=== PATIENT | male | born 1965 | race African-American/Black ===

== ENCOUNTER 2020-02-04 19:49 | Emergency (ER) | payer MEDICAID ==
[~2020-02-04] VITALS: Ht 190.5 cm; Wt 99.8 kg
[2020-02-04 19:53] VITALS: BP 153/87
--- NOTE | 2020-02-04 20:00 | NUR ---
To ED bed 06
--- NOTE | 2020-02-04 20:01 | NUR ---
54 YO M BIB SELF FOR C/C OF MIDSTERNAL CHEST PAIN THAT BEGAN 30 MIN AGO WHILE AT REST. PT DESCRIBES THE PAIN SHARP/STABBING PAIN THAT RADIATES TO HIS LEFT ARM AND BACK. PT STATES HIS PAIN IS NOW 2/10. STATES HE TOOK 81MG ASPIRIN WHEN PAIN BEGAN. S1S2 HEARD. LUNG SOUNDS CLEAR THROUGHOUT. STATES HE FEELS NAUSEA WITH NO VOMITING. CAP REFILL <3. PERIPHERAL PULSES ARE EQUAL AND REGULAR. BED LOCKED AND IN LOWEST POSITION. SIDE RAILS X2. CARDIAC MONTIOR/PULSE OX IN PLACE. MED HX: ARTHIRTIS, HTN RX: ASPIRIN NKA
--- NOTE | 2020-02-04 20:03 | NUR ---
EKG PERFORMED AT BEDSIDE BY EMT.
[2020-02-04] MEDS ORDERED: NACL 0.9% 1,000 ML IV ONE (20:20)
[2020-02-04] MEDS ORDERED: ASPIRIN 81 MG TAB.CHEW PO ONE (20:20)
--- NOTE | 2020-02-04 20:22 | NUR ---
ERMD AT BEDSIDE
--- NOTE | 2020-02-04 20:33 | NUR ---
RAD AT BEDSIDE
[2020-02-04 20:35] LABS: BASOPHILS # (AUTO) 0.1 K/uL (0.00-0.22); BASOPHILS % (AUTO) 0.8 % (0.0-2.0); EOSINOPHILS # (AUTO) 0.2 K/uL (0-0.4); EOSINOPHILS % (AUTO) 2.9 % (0.0-4.0); HEMATOCRIT 44.3 % (36-52); HEMOGLOBIN 14.9 g/dL (12.0-18.0); LYMPHOCYTES % (AUTO) 29.3 % (20.5-51.1); MEAN CORPUSCULAR HEMOGLOBIN 29 pg (27-31); MEAN CORPUSCULAR HGB CONC 34 g/dL (33-37); MEAN CORPUSCULAR VOLUME 85.8 fL (80-94); MONOCYTES # (AUTO) 0.5 K/uL (0.8-1.0); MONOCYTES % (AUTO) 6.5 % (1.7-9.3); NEUTROPHILS # (AUTO) 4.2 K/uL (1.8-7.7); NEUTROPHILS % (AUTO) 60.5 % (42.2-75.2); PLATELET COUNT (AUTO) 333 K/uL (140-450); RED BLOOD CELL COUNT(AUTO) 5.17 MIL/uL (4.20-6.10); RED CELL DISTRIBUTION WIDTH 12.9 % (11.6-13.7); WHITE BLOOD COUNT (AUTO) 6.9 K/uL (4.8-10.8)
[2020-02-04 21:04] LABS: ALBUMIN 3.9 g/dL (3.4-5.0); ANION GAP 10.9 (8-16); CARBON DIOXIDE 26.8 mmol/L (21-32); CREATININE 1.1 mg/dL (0.6-1.3); POTASSIUM 3.7 mmol/L (3.5-5.1); TOTAL BILIRUBIN 0.4 mg/dL (0.0-1.0)
--- NOTE | 2020-02-04 21:04 | NUR ---
PT AMBULATED TO WITH STEADY GAIT
--- NOTE | 2020-02-04 21:06 | NUR ---
PT RETURNED FROM RR WITH STEADY GAIT. PLACED BACK ON MONITOR.
--- NOTE | 2020-02-04 21:18 | NUR ---
PT RESTING IN BED COMFORTABLY. STATES HIS PAIN IS 0/10. EQUAL CHEST RISE AND FALL. BED LOCKED AND IN LOWEST POSITION. SIDE RAILS X1
[2020-02-04 21:35] VITALS: BP 140/89
--- NOTE | 2020-02-04 21:35 | NUR ---
Patient discharged with v/s stable. Written and verbal after care instructions given and explained. Patient verbalized understanding. Ambulatory with steady gait. All questions addressed prior to discharge. Advised to follow up with PMD.
== END 2020-02-04 21:35 | disposition home or self-care (01) ==
LOC: MED 19:49
DX: R07.9 Chest pain, unspecified (principal)
CPT/HCPCS: 36415; 71045; 80053; 84484; 85025; 93005; 96360; 99285; J7030; Q0092